=== PATIENT | female | born 1930 | race Caucasian/White ===

== ENCOUNTER 2019-09-30 11:13 | Inpatient (IN) | payer MEDICARE, OTHER ==
[~2019-09-30] VITALS: Ht 167.6 cm; Wt 86.0 kg
--- NOTE | 2019-09-30 12:37 | RAD ---
Left elbow x-rays 3 views HISTORY: Left elbow pain after a fall. FINDINGS: There is posterior dislocation of both the ulna and radius relative to the humerus at the elbow. Elevation of the fat pads due to a joint effusion. There is impaction of the ulna coronoid upon the intercondylar humerus. There is acute traumatic distracted an impacted fracture radial head with displaced osteochondral fragment. IMPRESSION: Comminuted impacted and displaced fracture of the radial head with a large displaced osteochondral fragment. There is posterior dislocation of both the radius and ulna. See above. Electronically signed by: Pratik Mccormick MD (09/30/2019 12:34 PM) [id number]
[2019-09-30 13:14] LABS: BASO % 1 % (0-3); EOS # 0.2 x10^3/uL (0.0-0.7); EOS % 2 % (0-3); HEMATOCRIT 41.5 % (36.0-47.0); HEMOGLOBIN 14.2 g/dL (12.0-15.5); LYMPH # 1.4 x10^3/uL (1.0-4.8); LYMPH % 18 % (24-48); MEAN CORPUSCULAR HEMOGLOBIN 30 pg (25-35); MEAN CORPUSCULAR HGB CONC 34 g/dL (31-37); MEAN CORPUSCULAR VOLUME 88 fL (79-100); MONO # 0.7 x10^3/uL (0.0-1.1); MONO % 9 % (0-9); NEUT # 5.4 x10^3/uL (1.8-7.7); NEUT % 70 % (31-73); PLATELET COUNT 191 x10^3/uL (140-400); RED BLOOD COUNT 4.69 x10^6/uL (3.50-5.40); RED CELL DISTRIBUTION WIDTH 14.3 % (11.5-14.5); WHITE BLOOD COUNT 7.7 x10^3/uL (4.0-11.0)
[2019-09-30] MEDS ORDERED: IV NORMAL SALINE 500ML BAG 500 ML IV ONE (13:15)
[2019-09-30] MEDS ORDERED: fentaNYL PF VIAL 100 MCG/2 ML VIAL IVP ONE (13:15)
[2019-09-30] MEDS ORDERED: PROPOFOL 10 MG/ML (20ML) VIAL. IV ONE (13:15)
[2019-09-30] MEDS ORDERED: ONDANSETRON PF 4 MG/2 ML VIAL. IVP ONE (13:15)
[2019-09-30 13:23] LABS: CALCIUM 8.9 mg/dL (8.5-10.1); CREATININE 1.2 mg/dL (0.6-1.0); GFR 42.5; POTASSIUM 3.9 mmol/L (3.5-5.1)
[2019-09-30 13:24] VITALS: BP 220/98
[2019-09-30 13:28] LABS: ALBUMIN 3.4 g/dL (3.4-5.0); TOTAL BILIRUBIN 0.5 mg/dL (0.2-1.0); TOTAL PROTEIN 6.9 g/dL (6.4-8.2)
--- NOTE | 2019-09-30 14:13 | RAD ---
ELBOW LEFT 2V Clinical Indication: Reason: post reduction / Spl. Instructions: / History: Comparison: Left elbow, 3 views, earlier same day. Findings: Posterior dislocation of the radius and ulna in relation to the distal humerus has been reduced. Comminuted fracture of the proximal radial head is redemonstrated. There is lipohemarthrosis. Limited evaluation of the coronoid process of the ulna due to bony overlap. Cast material overlies the elbow. IMPRESSION: Successful reduction of posterior dislocation of the radius and ulna. Electronically signed by: Telly Woo MD (09/30/2019 2:10 PM) [facility]
--- NOTE | 2019-09-30 14:31 | PHYS DOC ---
Past Medical History Past Medical History: Hypertension Additional Past Medical Histor: lymphedema in legs Past Surgical History: Other Additional Past Surgical Histo: D&C Smoking Status: Never Smoker Alcohol Use: Rarely Drug Use: None General Adult EDM: Chief Complaint: MECHANICAL FALL HPI: HPI: Patient is a 88 year old female who was brought here for evaluation due to left elbow pain after she failed at yazidi today. Patient was supposed to walk with a walker but today she chose to walk with a cane, she lost her balance and fell down, hit left elbow on ground, did not hit her head. No headache, no neck pain, no chest pain, no abdominal pain. No back pain, no lower extremities pain, no pelvic pain, no hip pain. She is complaining of left elbow pain. Review of Systems: Review of Systems: Constitutional: Denies fever or chills. [] Eyes: Denies change in visual acuity. [] HENT: Denies nasal congestion or sore throat. [] Respiratory: Denies cough or shortness of breath. [] Cardiovascular: Denies chest pain or edema. [] GI: Denies abdominal pain, nausea, vomiting, bloody stools or diarrhea. [] : Denies dysuria. [] Musculoskeletal: Denies back pain. Positive for left elbow pain. Integument: Denies rash. [] Neurologic: Denies headache, focal weakness or sensory changes. [] Endocrine: Denies polyuria or polydipsia. [] Lymphatic: Denies swollen glands. [] Psychiatric: Denies depression or anxiety. [] Heart Score: Risk Factors: Risk Factors: DM, Current or recent (<one month) smoker, HTN, HLP, family history of CAD, obesity. Risk Scores: Score 0 - 3: 2.5% MACE over next 6 weeks - Discharge Home Score 4 - 6: 20.3% MACE over next 6 weeks - Admit for Clinical Observation Score 7 - 10: 72.7% MACE over next 6 weeks - Early Invasive Strategies Current Medications: Current Medications Medications (Trade) Dose Ordered Sig/Caitlin Start Time Stop Time Status Last Admin Dose Admin Fentanyl Citrate (Fentanyl 2ml Vial) 50 mcg 1X ONCE 09/30/19 13:15 09/30/19 13:16 DC 09/30/19 13:28 50 MCG Ondansetron HCl (Zofran) 4 mg 1X ONCE 09/30/19 13:15 09/30/19 13:16 DC 09/30/19 13:28 4 MG Propofol (Diprivan) 200 mg 1X ONCE 09/30/19 13:15 09/30/19 13:16 DC 09/30/19 13:45 200 MG Sodium Chloride 500 ml @ 500 mls/hr 1X ONCE 09/30/19 13:15 09/30/19 14:14 DC 09/30/19 13:28 500 MLS/HR Allergies: Allergies: Allergies Coded Allergies Type Severity Reaction Last Updated Verified Iodinated Contrast Media Allergy Intermediate Hives 12/22/14 No Physical Exam: PE: Constitutional: Well developed, well nourished, no acute distress, non-toxic appearance. [] HENT: Normocephalic, atraumatic, bilateral external ears normal, oropharynx juan st, no oral exudates, nose normal. [] Eyes: PERRLA, EOMI, conjunctiva normal, no discharge. [] Neck: Normal range of motion, no tenderness, supple, no stridor. [] Cardiovascular:Heart rate regular rhythm, no murmur [] Lungs & Thorax: Bilateral breath sounds clear to auscultation [] Abdomen: Bowel sounds normal, soft, no tenderness, no masses, no pulsatile masses. [] Skin: Warm, dry, no erythema, no rash. [] Back: No tenderness, no CVA tenderness. [] Extremities: left elbow is swollen, deformed, tender to palpation, no open wound. Patient can move left wrist and fingers, good radial pulse, no focal neurovascular deficit. Neurologic: Alert and oriented X 3, normal motor function, normal sensory f unction, no focal deficits noted. [] Psychologic: Affect normal, judgement normal, mood normal. [] Current Patient Data: Labs: Laboratory Tests Test 09/30/19 13:05 White Blood Count 7.7 x10^3/uL (4.0-11.0) Red Blood Count 4.69 x10^6/uL (3.50-5.40) Hemoglobin 14.2 g/dL (12.0-15.5) Hematocrit 41.5 % (36.0-47.0) Mean Corpuscular Volume 88 fL (79-100) Mean Corpuscular Hemoglobin 30 pg (25-35) Mean Corpuscular Hemoglobin Concent 34 g/dL (31-37) Red Cell Distribution Width 14.3 % (11.5-14.5) Platelet Count 191 x10^3/uL (140-400) Neutrophils (%) (Auto) 70 % (31-73) Lymphocytes (%) (Auto) 18 % (24-48) L Monocytes (%) (Auto) 9 % (0-9) Eosinophils (%) (Auto) 2 % (0-3) Basophils (%) (Auto) 1 % (0-3) Neutrophils # (Auto) 5.4 x10^3/uL (1.8-7.7) Lymphocytes # (Auto) 1.4 x10^3/uL (1.0-4.8) Monocytes # (Auto) 0.7 x10^3/uL (0.0-1.1) Eosinophils # (Auto) 0.2 x10^3/uL (0.0-0.7) Basophils # (Auto) 0.0 x10^3/uL (0.0-0.2) Prothrombin Time 15.0 SEC (11.7-14.0) H Prothrombin Time INR 1.2 (0.8-1.1) H Activated Partial Thromboplast Time 31 SEC (24-38) Sodium Level 139 mmol/L (136-145) Potassium Level 3.9 mmol/L (3.5-5.1) Chloride Level 102 mmol/L (98-107) Carbon Dioxide Level 32 mmol/L (21-32) Anion Gap 5 (6-14) L Blood Urea Nitrogen 22 mg/dL (7-20) H Creatinine 1.2 mg/dL (0.6-1.0) H Estimated GFR (Cockcroft-Gault) 42.5 BUN/Creatinine Ratio 18 (6-20) Glucose Level 161 mg/dL (70-99) H Calcium Level 8.9 mg/dL (8.5-10.1) Total Bilirubin 0.5 mg/dL (0.2-1.0) Aspartate Amino Transferase (AST) 16 U/L (15-37) Alanine Aminotransferase (ALT) 15 U/L (14-59) Alkaline Phosphatase 74 U/L (46-116) Total Protein 6.9 g/dL (6.4-8.2) Albumin 3.4 g/dL (3.4-5.0) Albumin/Globulin Ratio 1.0 (1.0-1.7) Laboratory Tests 09/30/19 13:05 Laboratory Tests 09/30/19 13:05 Vital Signs: Vital Signs Date Time Temp Pulse Resp B/P (MAP) Pulse Ox O2 Delivery O2 Flow Rate FiO2 09/30/19 14:15 57 17 96 09/30/19 13:28 Room Air 09/30/19 13:24 97.2 220/98 2.0 97.5 2.0 97.5 2.0 2.0 2.0 EKG: EKG: [] Radiology/Procedures: Radiology/Procedures: [address] [id number] IMAGING REPORT Signed PATIENT: KELLEN FRANCO: [id number] : 1930 LOCATION: ER AGE: 88 SEX: F EXAM STATUS: PRE ER ORD. PHYSICIAN: DENIZ RAMOS DO REASON: left elbow pain after fall today PROCEDURE: ELBOW LEFT 3V Left elbow x-rays 3 views HISTORY: Left elbow pain after a fall. FINDINGS: There is posterior dislocation of both the ulna and radius relative to the humerus at the elbow. Elevation of the fat pads due to a joint effusion. There is impaction of the ulna coronoid upon the intercondylar humerus. There is acute traumatic distracted an impacted fracture radial head with displaced osteochondral fragment. IMPRESSION: Comminuted impacted and displaced fracture of the radial head with a large displaced osteochondral fragment. There is posterior dislocation of both the radius and ulna. See above. Electronically signed by: Víctor Mccormick MD (09/30/2019 12:34 PM) [id number] DICTATED and SIGNED BY: VÍCTOR MCCORMICK MD DATE: 09/30/[address] [id number] IMAGING REPORT Signed PATIENT: KELLEN FRANCO: [id number] : 1930 LOCATION: ER AGE: 88 SEX: F EXAM STATUS: REG ER ORD. PHYSICIAN: DENIZ RAMOS DO REASON: post reduction PROCEDURE: ELBOW LEFT 2V ELBOW LEFT 2V Clinical Indication: Reason: post reduction / Spl. Instructions: / History: Comparison: Left elbow, 3 views, earlier same day. Findings: Posterior dislocation of the radius and ulna in relation to the distal humerus has been reduced. Comminuted fracture of the proximal radial head is redemonstrated. There is lipohemarthrosis. Limited evaluation of the coronoid process of the ulna due to bony overlap. Cast material overlies the elbow. IMPRESSION: Successful reduction of posterior dislocation of the radius and ulna. Electronically signed by: Telly Woo MD (09/30/2019 2:10 PM) [facility] DICTATED and SIGNED BY: TELLY WOO MD DATE: 09/30/191409 [] Course & Med Decision Making: Course & Med Decision Making Pertinent Labs and Imaging studies reviewed. (See chart for details) SEDATION/ JOINT REDUCTION/SPLINTING PROCEDURE: Indication: Joint dislocation Consent: Consent was obtained. Procedure: The pre-reduction exam showed distal perfusion and neurologic function to be normal.. The patient was placed in the appropriate position. Patient was given 100 mg of PROPOFOL IV FOR SEDATION. Reduction of the LEFT ELBOW DISLOCATION was performed by TRACTION AND MANIPULATION AND PLACED IN POSTERIOR LONGER ARM SPLINT, ORTHOGLASS MATERIAL BY THIS PHYSICIAN. Post reduction films were obtained and revealed satisfactory reduction. A post- reduction exam revealed distal perfusion and neurologic function to be normal. The affected area was immobilized with POSTERIOR LONG ARM SPLINT , ORTHOGLASS MATERIAL. The patient tolerated the procedure well. Complications: none. Patient fell, broke and dislocated left elbow. Discussed with orthopedic [employer] unified communications engineer, Dr. Carter WHO recommended urgent reduction and admit patient to hospitalist service. He will see patient in am. Vivek Disclaimer: Vivek Disclaimer: This electronic medical record was generated, in whole or in part, using a voice recognition dictation system. Departure Departure Impression: Primary Impression: Fracture dislocation of left elbow joint Additional Impression: Closed dislocation of left elbow Disposition: ADMITTED INPATIENT Admitting Physician: CARA (Dr. Schreiber) Condition: IMPROVED Referrals: ADALGISA BROUSSARD MD (PCP) Justicifation of Admission Dx: Justifications for Admission: Justification of Admission Dx: Yes Fracture: Fracture Procedural Sedation Proc Sed Indication: Left elbow fracture and dislocation Consent: I have discussed with the patient and/or the patient circulation sales representative the indication, alternatives, and the possible risks and /or complications of the planned procedure and the anesthesia methods. The patient and/or patient circulation sales representative appear to understand and agree to proceed. Pre-Sedation Documentation and Exam: Patient was awake, alert, no neurovascular deficit, lung sound clear, heart rate regular. Airway Assessment: normal. Prior History of Anesthesia Complications: none. ASA Classification: 3 Sedation/ Anesthesia Plan: iv propofol. Medications Used: see nursing notes. Monitoring and Safety: The patient was placed on a athletic monitor and vital signs, pulse oximetry and level of consciousness were continuously evaluated throughout the procedure. The patient was closely monitored until recovery from the medications was complete and the patient had returned to baseline status. Respiratory therapy was on standby at all times during the procedure. (The following sections must be completed) Post-Sedation Vital Signs: see nurse notes, patient vital signs stable. Post-Sedation Exam: back to preprocedural status. Complications: none. Vital Signs Vital Signs Date Time Temp Pulse Resp B/P (MAP) Pulse Ox O2 Delivery O2 Flow Rate FiO2 10/01/19 08:17 71 181/76 10/01/19 07:00 97.9 16 93 Room Air 97.9 09/30/19 13:24 2.0 2.0 2.0 2.0 2.0 DENIZ RAMOS DO Sep 30, 2019 14:31
[2019-09-30] MEDS ORDERED: hydrALAZINE 20 MG/ML VIAL. IVP ONE (15:00)
[2019-09-30] MEDS ORDERED: CALC625T PO (15:22)
[2019-09-30] MEDS ORDERED: ATEN1TAB3 PO (15:22)
--- NOTE | 2019-09-30 15:42 | PDOC1 ---
History and Physical Date of Admission Date of Admission DATE: 09/30/19 TIME: 15:42 Identification/Chief Complaint Chief Complaint Patient is a 88 year old FEMALE ] who presents with A FALL AT [employer] TODAY, was talking to a friend and fell, x ray c/w fx elbow[] Past Medical History Past Medical History Past Medical History Past Medical History Past Medical History: Hypertension Additional Past Medical Histor: lymphedema in legs Past Surgical History: Other Additional Past Surgical Histo: D&C Smoking Status: Never Smoker Alcohol Use: Rarely Drug Use: None FHX OBESITY Musculoskeletal: Osteoarthritis Family History Family History: High Cholestrol Social History Smoke: No ALCOHOL: occassional Drugs: None Current Medications Current Medications Current Medications Fentanyl Citrate (Fentanyl 2ml Vial) 50 mcg 1X ONCE IVP Last administered on 09/30/19at 13:28; Start 09/30/19 at 13:15; Stop 09/30/19 at 13:16; Status DC Propofol (Diprivan) 200 mg 1X ONCE IV Last administered on 09/30/19at 13:45; Start 09/30/19 at 13:15; Stop 09/30/19 at 13:16; Status DC Sodium Chloride 500 ml @ 500 mls/hr 1X ONCE IV Last administered on 09/30/19at 13:28; Start 09/30/19 at 13:15; Stop 09/30/19 at 14:14; Status DC Ondansetron HCl (Zofran) 4 mg 1X ONCE IVP Last administered on 09/30/19at 13:28; Start 09/30/19 at 13:15; Stop 09/30/19 at 13:16; Status DC Hydralazine HCl (Apresoline Inj) 10 mg 1X ONCE IVP Last administered on 09/30/19at 15:00; Start 09/30/19 at 15:00; Stop 09/30/19 at 15:01; Status DC Active Scripts Active Reported Fibercon (Calcium Polycarbophil) 625 Mg Tablet 625 Mg PO DAILY Atenolol-Chlorthal 50-25 Tb (Atenolol/Chlorthalidone) 1 Each Tablet 1 Tab PO DAILY Allergies Allergies: Coded Allergies: Iodinated Contrast Media (Unverified Allergy, Intermediate, Hives, 12/22/14) ROS Review of System Constitutional: Denies fever or chills. [] Eyes: Denies change in visual acuity. [] HENT: Denies nasal congestion or sore throat. [] Respiratory: Denies cough or shortness of breath. [] Cardiovascular: Denies chest pain or edema. [] GI: Denies abdominal pain, nausea, vomiting, bloody stools or diarrhea. [] : Denies dysuria. [] Musculoskeletal: LEFT ELBOW joint pain. [] Integument: Denies rash. [] Neurologic: Denies headache, focal weakness or sensory changes. [] Endocrine: Denies polyuria or polydipsia. [] Lymphatic: Denies swollen glands. [] Psychiatric: Denies depression or anxiety. [] 14 PT ROS OTHERWISE NEG Respiratory: No: Cough, Hemoptysis, Orthopnea, Pleuritic Pain, Shortness of breath, SOB with excertion, Sputum Changes, Stridor, Tachypnea, Wheezing, Other Cardiovascular: No Chest Pain, No Palpitations, No Orthopnea, No Paroxysmal Noc. Dyspnea, No Edema, No Lt Headedness, No Other Gastrointestinal: No Nausea, No Vomiting, No Abdominal Pain, No Diarrhea, No Constipation, No Melena, No Hematochezia, No Other Musculoskeletal: Yes Gait Disturbance, Yes Joint Pain, Yes Joint Swelling Neurological: Yes Gait Disturbance Physical Exam Physical Exam Constitutional: Well developed, well nourished, MILD acute distress, non-toxic appearance. [] HENT: Normocephalic, atraumatic, bilateral external ears normal, oropharynx moist, no oral exudates, nose normal. [] Eyes: PERRLA, EOMI, conjunctiva normal, no discharge. [] Neck: Normal range of motion, no tenderness, supple, no stridor. [] Cardiovascular:Heart rate regular rhythm, no murmur [] Lungs & Thorax: Bilateral breath sounds clear to auscultation [] Abdomen: Bowel sounds normal, soft, no tenderness, no masses, no pulsatile masses. [] Skin: Warm, dry, no erythema, no rash. [] Back: No tenderness, no CVA tenderness. [] Extremities: LEFT ARM IN SLING no cyanosis, no clubbing, Neurologic: Alert and oriented X 3, normal motor function, normal sensory function, no focal deficits noted. [] Psychologic: Affect normal, judgment normal, mood normal. [] General: Alert, Oriented X3, Cooperative, mild distress HEENT: EOMI, Mucous membr. moist/pink Lungs: Clear to auscultation, Normal air movement Heart: RRR Breasts: Not examined Abdomen: Normal bowel sounds, Soft Rectal Exam: not examined PELVIC: Examination not indicated Extremities: No cyanosis Neuro: Normal speech, Cranial nerves 3-12 NL Psych/Mental Status: Mental status NL, Mood NL Vitals Vitals Vital Signs Date Time Temp Pulse Resp B/P (MAP) Pulse Ox O2 Delivery O2 Flow Rate FiO2 09/30/19 15:00 56 200/89 09/30/19 14:35 17 96 09/30/19 13:28 Room Air 09/30/19 13:24 97.2 2.0 97.5 2.0 97.5 2.0 2.0 2.0 Labs Labs Laboratory Tests Test 09/30/19 13:05 White Blood Count 7.7 x10^3/uL (4.0-11.0) Red Blood Count 4.69 x10^6/uL (3.50-5.40) Hemoglobin 14.2 g/dL (12.0-15.5) Hematocrit 41.5 % (36.0-47.0) Mean Corpuscular Volume 88 fL (79-100) Mean Corpuscular Hemoglobin 30 pg (25-35) Mean Corpuscular Hemoglobin Concent 34 g/dL (31-37) Red Cell Distribution Width 14.3 % (11.5-14.5) Platelet Count 191 x10^3/uL (140-400) Neutrophils (%) (Auto) 70 % (31-73) Lymphocytes (%) (Auto) 18 % (24-48) Monocytes (%) (Auto) 9 % (0-9) Eosinophils (%) (Auto) 2 % (0-3) Basophils (%) (Auto) 1 % (0-3) Neutrophils # (Auto) 5.4 x10^3/uL (1.8-7.7) Lymphocytes # (Auto) 1.4 x10^3/uL (1.0-4.8) Monocytes # (Auto) 0.7 x10^3/uL (0.0-1.1) Eosinophils # (Auto) 0.2 x10^3/uL (0.0-0.7) Basophils # (Auto) 0.0 x10^3/uL (0.0-0.2) Prothrombin Time 15.0 SEC (11.7-14.0) Prothromb Time International Ratio 1.2 (0.8-1.1) Activated Partial Thromboplast Time 31 SEC (24-38) Sodium Level 139 mmol/L (136-145) Potassium Level 3.9 mmol/L (3.5-5.1) Chloride Level 102 mmol/L (98-107) Carbon Dioxide Level 32 mmol/L (21-32) Anion Gap 5 (6-14) Blood Urea Nitrogen 22 mg/dL (7-20) Creatinine 1.2 mg/dL (0.6-1.0) Estimated GFR (Cockcroft-Gault) 42.5 BUN/Creatinine Ratio 18 (6-20) Glucose Level 161 mg/dL (70-99) Calcium Level 8.9 mg/dL (8.5-10.1) Total Bilirubin 0.5 mg/dL (0.2-1.0) Aspartate Amino Transf (AST/SGOT) 16 U/L (15-37) Alanine Aminotransferase (ALT/SGPT) 15 U/L (14-59) Alkaline Phosphatase 74 U/L (46-116) Total Protein 6.9 g/dL (6.4-8.2) Albumin 3.4 g/dL (3.4-5.0) Albumin/Globulin Ratio 1.0 (1.0-1.7) Laboratory Tests Test 09/30/19 13:05 White Blood Count 7.7 x10^3/uL (4.0-11.0) Red Blood Count 4.69 x10^6/uL (3.50-5.40) Hemoglobin 14.2 g/dL (12.0-15.5) Hematocrit 41.5 % (36.0-47.0) Mean Corpuscular Volume 88 fL (79-100) Mean Corpuscular Hemoglobin 30 pg (25-35) Mean Corpuscular Hemoglobin Concent 34 g/dL (31-37) Red Cell Distribution Width 14.3 % (11.5-14.5) Platelet Count 191 x10^3/uL (140-400) Neutrophils (%) (Auto) 70 % (31-73) Lymphocytes (%) (Auto) 18 % (24-48) Monocytes (%) (Auto) 9 % (0-9) Eosinophils (%) (Auto) 2 % (0-3) Basophils (%) (Auto) 1 % (0-3) Neutrophils # (Auto) 5.4 x10^3/uL (1.8-7.7) Lymphocytes # (Auto) 1.4 x10^3/uL (1.0-4.8) Monocytes # (Auto) 0.7 x10^3/uL (0.0-1.1) Eosinophils # (Auto) 0.2 x10^3/uL (0.0-0.7) Basophils # (Auto) 0.0 x10^3/uL (0.0-0.2) Prothrombin Time 15.0 SEC (11.7-14.0) Prothromb Time International Ratio 1.2 (0.8-1.1) Activated Partial Thromboplast Time 31 SEC (24-38) Sodium Level 139 mmol/L (136-145) Potassium Level 3.9 mmol/L (3.5-5.1) Chloride Level 102 mmol/L (98-107) Carbon Dioxide Level 32 mmol/L (21-32) Anion Gap 5 (6-14) Blood Urea Nitrogen 22 mg/dL (7-20) Creatinine 1.2 mg/dL (0.6-1.0) Estimated GFR (Cockcroft-Gault) 42.5 BUN/Creatinine Ratio 18 (6-20) Glucose Level 161 mg/dL (70-99) Calcium Level 8.9 mg/dL (8.5-10.1) Total Bilirubin 0.5 mg/dL (0.2-1.0) Aspartate Amino Transf (AST/SGOT) 16 U/L (15-37) Alanine Aminotransferase (ALT/SGPT) 15 U/L (14-59) Alkaline Phosphatase 74 U/L (46-116) Total Protein 6.9 g/dL (6.4-8.2) Albumin 3.4 g/dL (3.4-5.0) Albumin/Globulin Ratio 1.0 (1.0-1.7) Images Images Left elbow x-rays 3 views HISTORY: Left elbow pain after a fall. FINDINGS: There is posterior dislocation of both the ulna and radius relative to the humerus at the elbow. Elevation of the fat pads due to a joint effusion. There is impaction of the ulna coronoid upon the intercondylar humerus. There is acute traumatic distracted an impacted fracture radial head with displaced osteochondral fragment. IMPRESSION: Comminuted impacted and displaced fracture of the radial head with a large displaced osteochondral fragment. There is posterior dislocation of both the radius and ulna. See above. Electronically signed by: Pratik Mccormick MD (09/30/2019 12:34 PM) [id number] DICTATED and SIGNED BY: PRATIK MCCORMICK MD DATE: 09/30/19 1234 VTE Prophylaxis Ordered VTE Prophylaxis Devices: Yes VTE Pharmacological Prophylaxi: Contraindicated Assessment/Plan Assessment/Plan MPRESSION: 1. Mechanical fall 2. Comminuted impacted and displaced fracture of the radial head with a large displaced osteochondral fragment. There is posterior dislocation of both the radius and ulna 3, unsteady gait 4. intractable pain from fracture plan admit ORTHO CONSULT IV PAIN CONTROL BEDREST D/W ER DR Lugotion of Admission Dx: Justifications for Admission: Justification of Admission Dx: Yes Fracture: Fracture Comments: FALL, GAIT INSTABILITY, INTRACTABLE PAIN BART DOMINIQUE MD Sep 30, 2019 15:42
[2019-09-30] MEDS ORDERED: HYDROmorphone 2 MG/ML VIAL IVP PRN (16:00)
[2019-09-30 19:00] VITALS: BP 124/55
[2019-09-30] MEDS: CALCIUM POLYCARBOPHIL 625 MG TABLET PO SCH (20:11)
[2019-09-30 23:00] VITALS: BP 125/43
[2019-10-01 03:02] VITALS: BP 147/67
[2019-10-01 07:00] VITALS: BP 181/76
--- NOTE | 2019-10-01 07:15 | PDOC2 ---
CONSULT Date of Consult Date of Consult DATE: 10/01/19 TIME: 07:11 Reason for Consult Reason for Consult: Left elbow pain Referring Physician Referring Physician: Abdoul Identification/Chief Complaint Chief Complaint Left elbow pain Source Source: Patient History of Present Illness Reason for Visit: Patient is a pleasant 88-year-old [id number] female who lives alone. She tripped and lost her footing at [employer] yesterday, landing onto an outstretched left upper extremity noting immediate pain and deformity. Because of this she was brought to the emergency department where she underwent x-rays and a successful reduction. She was placed into a splint and admitted for care regarding her left elbow fracture dislocation. She tells me that her pain is certainly much better than it was immediately after her injury. She denies any numbness or tingling in her fingers, she has noticed that her fingers are little bit swollen this morning. She denies hitting anything else or any other complaints of pain. Past Medical History Musculoskeletal: Osteoarthritis Family History Family History: High Cholestrol Social History No ALCOHOL: occassional Drugs: None Lives: Alone Current Problem List Problem List Problems Medical Problems: (1) Closed dislocation of left elbow Status: Acute (2) Fracture dislocation of left elbow joint Status: Acute Current Medications Current Medications Current Medications Fentanyl Citrate (Fentanyl 2ml Vial) 50 mcg 1X ONCE IVP Last administered on 09/30/19at 13:28; Start 09/30/19 at 13:15; Stop 09/30/19 at 13:16; Status DC Propofol (Diprivan) 200 mg 1X ONCE IV Last administered on 09/30/19at 13:45; Start 09/30/19 at 13:15; Stop 09/30/19 at 13:16; Status DC Sodium Chloride 500 ml @ 500 mls/hr 1X ONCE IV Last administered on 09/30/19at 13:28; Start 09/30/19 at 13:15; Stop 09/30/19 at 14:14; Status DC Ondansetron HCl (Zofran) 4 mg 1X ONCE IVP Last administered on 09/30/19at 13:28; Start 09/30/19 at 13:15; Stop 09/30/19 at 13:16; Status DC Hydralazine HCl (Apresoline Inj) 10 mg 1X ONCE IVP Last administered on 09/30/19at 15:00; Start 09/30/19 at 15:00; Stop 09/30/19 at 15:01; Status DC Calcium Polycarbophil (Fibercon) 625 mg DAILY PO ; Start 10/01/19 at 09:00; Stop 09/30/19 at 19:18; Status DC Atenolol (Tenormin) 50 mg DAILY PO ; Start 10/01/19 at 09:00 Hydromorphone HCl (Dilaudid) 0.4 mg PRN Q4HRS PRN IVP MODERATE TO SEVERE PAIN; Start 09/30/19 at 16:00 Chlorthalidone (Thalitone) 25 mg DAILY PO ; Start 10/01/19 at 09:00 Calcium Polycarbophil (Fibercon) 625 mg HS PO Last administered on 09/30/19at 20:11; Start 09/30/19 at 21:00 Active Scripts Active Reported Fibercon (Calcium Polycarbophil) 625 Mg Tablet 625 Mg PO DAILY Atenolol-Chlorthal 50-25 Tb (Atenolol/Chlorthalidone) 1 Each Tablet 1 Tab PO DAILY Allergies Allergies: Coded Allergies: Iodinated Contrast Media (Unverified Allergy, Intermediate, Hives, 12/22/14) ROS General: No: Chills, Night Sweats, Fatigue, Malaise, Appetite, Other PSYCHOLOGICAL ROS: No: Anxiety, Behavioral Disorder, Concentration difficultie, Decreased libido, Depression, Disorientation, Hallucinations, Hostility, Irritablity, Memory difficulties, Mood Swings, Obsessive thoughts, Physical abuse, Sexual abuse, Sleep disturbances, Suicidal ideation, Other Eyes: No Blurry vision, No Decreased vision, No Double vision, No Dry eyes, No Excessive tearing, No Eye Pain, No Itchy Eyes, No Loss of vision, No Photophobia, No Scotomata, No Uses contacts, No Uses glasses, No Other HEENT: No: Heacaches, Visual Changes, Hearing change, Nasal congestion, Nasal discharge, Oral lesions, Sinus pain, Sore Throat, Epistaxis, Sneezing, Snoring, Tinnitus, Vertigo, Vocal changes, Other ALLERGY AND IMMUNOLOGY: No: Hives, Insect Bite Sensitivity, Itchy/Watery Eyes, Nasal Congestion, Post Nasal Drip, Seasonal Allergies, Other Hematological and Lymphatic: No: Bleeding Problems, Blood Clots, Blood Transfusions, Brusing, Night Sweats, Pallor, Swollen Lymph Nodes, Other ENDOCRINE: No: Breast Changes, Galactorrhea, Hair Pattern Changes, Hot Flashes, Malaise/lethargy, Mood Swings, Palpitations, Polydipsia/polyuria, Skin Changes, Temperature Intolerance, Unexpected Weight Changes, Other Respiratory: No: Cough, Hemoptysis, Orthopnea, Pleuritic Pain, Shortness of breath, SOB with excertion, Sputum Changes, Stridor, Tachypnea, Wheezing, Other Cardiovascular: No Chest Pain, No Palpitations, No Orthopnea, No Paroxysmal Noc. Dyspnea, No Edema, No Lt Headedness, No Other Gastrointestinal: No Nausea, No Vomiting, No Abdominal Pain, No Diarrhea, No Constipation, No Melena, No Hematochezia, No Other Genitourinary: No Dysuria, No Frequency, No Incontinence, No Hematuria, No Retention, No Discharge, No Urgency, No Pain, No Flank Pain, No Other, No , No , No , No , No , No , No Musculoskeletal: Yes Joint Pain, Yes Joint Stiffness Neurological: No Behavorial Changes, No Bowel/Bladder ControlChng, No Confusion, No Dizziness, No Gait Disturbance, No Headaches, No Impaired Coord/balance, No Memory Loss, No Numbness/Tingling, No Seizures, No Speech Problems, No Tremors, No Visual Changes, No Weakness, No Other Skin: No Dry Skin, No Eczema, No Hair Changes, No Lumps, No Mole Changes, No Mottling, No Nail Changes, No Pruritus, No Rash, No Skin Lesion Changes, No Other, No Acne Physical Exam General: Alert, Oriented X3 HEENT: Atraumatic, EOMI Lungs: Other (On examination, respirations are unlabored with symmetric chest rise) Heart: Regular rate Abdomen: Soft, No tenderness Extremities: No edema (With the exception of a mild amount of edema at her exposed digits on her left upper extremity), Normal pulses Neuro: Normal speech, Strength at 5/5 X4 ext, Sensation intact Psych/Mental Status: Mental status NL, Mood NL MUSCULOSKELETAL: Other (Left upper extremity is in a posterior splint, sling in place. Normal motor and sensation present median, radial, ulnar nerves.) Vitals VITALS Vital Signs Date Time Temp Pulse Resp B/P (MAP) Pulse Ox O2 Delivery O2 Flow Rate FiO2 10/01/19 03:02 98.2 77 20 147/67 (93) 91 Room Air 98.2 09/30/19 13:24 2.0 2.0 2.0 2.0 2.0 Labs Labs Laboratory Tests Test 09/30/19 13:05 09/30/19 13:40 White Blood Count 7.7 x10^3/uL (4.0-11.0) Red Blood Count 4.69 x10^6/uL (3.50-5.40) Hemoglobin 14.2 g/dL (12.0-15.5) Hematocrit 41.5 % (36.0-47.0) Mean Corpuscular Volume 88 fL (79-100) Mean Corpuscular Hemoglobin 30 pg (25-35) Mean Corpuscular Hemoglobin Concent 34 g/dL (31-37) Red Cell Distribution Width 14.3 % (11.5-14.5) Platelet Count 191 x10^3/uL (140-400) Neutrophils (%) (Auto) 70 % (31-73) Lymphocytes (%) (Auto) 18 % (24-48) Monocytes (%) (Auto) 9 % (0-9) Eosinophils (%) (Auto) 2 % (0-3) Basophils (%) (Auto) 1 % (0-3) Neutrophils # (Auto) 5.4 x10^3/uL (1.8-7.7) Lymphocytes # (Auto) 1.4 x10^3/uL (1.0-4.8) Monocytes # (Auto) 0.7 x10^3/uL (0.0-1.1) Eosinophils # (Auto) 0.2 x10^3/uL (0.0-0.7) Basophils # (Auto) 0.0 x10^3/uL (0.0-0.2) Prothrombin Time 15.0 SEC (11.7-14.0) Prothromb Time International Ratio 1.2 (0.8-1.1) Activated Partial Thromboplast Time 31 SEC (24-38) Sodium Level 139 mmol/L (136-145) Potassium Level 3.9 mmol/L (3.5-5.1) Chloride Level 102 mmol/L (98-107) Carbon Dioxide Level 32 mmol/L (21-32) Anion Gap 5 (6-14) Blood Urea Nitrogen 22 mg/dL (7-20) Creatinine 1.2 mg/dL (0.6-1.0) Estimated GFR (Cockcroft-Gault) 42.5 BUN/Creatinine Ratio 18 (6-20) Glucose Level 161 mg/dL (70-99) Calcium Level 8.9 mg/dL (8.5-10.1) Total Bilirubin 0.5 mg/dL (0.2-1.0) Aspartate Amino Transf (AST/SGOT) 16 U/L (15-37) Alanine Aminotransferase (ALT/SGPT) 15 U/L (14-59) Alkaline Phosphatase 74 U/L (46-116) Total Protein 6.9 g/dL (6.4-8.2) Albumin 3.4 g/dL (3.4-5.0) Albumin/Globulin Ratio 1.0 (1.0-1.7) Coronavirus (COVID-19)(PCR) Negative (NEGATIVE) Laboratory Tests Test 09/30/19 13:05 09/30/19 13:40 White Blood Count 7.7 x10^3/uL (4.0-11.0) Red Blood Count 4.69 x10^6/uL (3.50-5.40) Hemoglobin 14.2 g/dL (12.0-15.5) Hematocrit 41.5 % (36.0-47.0) Mean Corpuscular Volume 88 fL (79-100) Mean Corpuscular Hemoglobin 30 pg (25-35) Mean Corpuscular Hemoglobin Concent 34 g/dL (31-37) Red Cell Distribution Width 14.3 % (11.5-14.5) Platelet Count 191 x10^3/uL (140-400) Neutrophils (%) (Auto) 70 % (31-73) Lymphocytes (%) (Auto) 18 % (24-48) Monocytes (%) (Auto) 9 % (0-9) Eosinophils (%) (Auto) 2 % (0-3) Basophils (%) (Auto) 1 % (0-3) Neutrophils # (Auto) 5.4 x10^3/uL (1.8-7.7) Lymphocytes # (Auto) 1.4 x10^3/uL (1.0-4.8) Monocytes # (Auto) 0.7 x10^3/uL (0.0-1.1) Eosinophils # (Auto) 0.2 x10^3/uL (0.0-0.7) Basophils # (Auto) 0.0 x10^3/uL (0.0-0.2) Prothrombin Time 15.0 SEC (11.7-14.0) Prothromb Time International Ratio 1.2 (0.8-1.1) Activated Partial Thromboplast Time 31 SEC (24-38) Sodium Level 139 mmol/L (136-145) Potassium Level 3.9 mmol/L (3.5-5.1) Chloride Level 102 mmol/L (98-107) Carbon Dioxide Level 32 mmol/L (21-32) Anion Gap 5 (6-14) Blood Urea Nitrogen 22 mg/dL (7-20) Creatinine 1.2 mg/dL (0.6-1.0) Estimated GFR (Cockcroft-Gault) 42.5 BUN/Creatinine Ratio 18 (6-20) Glucose Level 161 mg/dL (70-99) Calcium Level 8.9 mg/dL (8.5-10.1) Total Bilirubin 0.5 mg/dL (0.2-1.0) Aspartate Amino Transf (AST/SGOT) 16 U/L (15-37) Alanine Aminotransferase (ALT/SGPT) 15 U/L (14-59) Alkaline Phosphatase 74 U/L (46-116) Total Protein 6.9 g/dL (6.4-8.2) Albumin 3.4 g/dL (3.4-5.0) Albumin/Globulin Ratio 1.0 (1.0-1.7) Coronavirus (COVID-19)(PCR) Negative (NEGATIVE) Images Images Pre-and post reduction x-rays were interpreted by myself. Report was reviewed. Posterior lateral elbow dislocation with comminuted radial head fracture. Assessment/Plan Assessment/Plan Given her age, the comminution at the radial head and her elbow dislocation, I discussed proceeding with radial head replacement and ligament repair at her elbow. We discussed the risks, benefits, and alternatives including bleeding, infection, hardware problems, possible need for additional surgery down the road, splinting postoperatively and expected rehab placement, among general medical problems as well. She would like to proceed. GERMANIA GOVEA II, MD Oct 01, 2019 07:15
[2019-10-01] MEDS: ATENOLOL 50 MG TABLET. PO SCH (08:17)
[2019-10-01] MEDS: CHLORTHALIDONE 25 MG TABLET. PO SCH (08:17)
[2019-10-01] MEDS ORDERED: CALCIUM POLYCARBOPHIL 625 MG TABLET PO SCH (09:00)
[2019-10-01 11:00] VITALS: BP 159/73
--- NOTE | 2019-10-01 12:36 | PDOC ---
PROGRESS NOTES Chief Complaint Chief Complaint acute left arm pain, with acute radial head and her elbow dislocation, Mechanical fall unsteady gait obese, BMI 30 htn History of Present Illness History of Present Illness weakness, debility PT and OT, herman needs skilled, to surg in tomorrow Vitals Vitals Vital Signs Date Time Temp Pulse Resp B/P (MAP) Pulse Ox O2 Delivery O2 Flow Rate FiO2 10/01/19 11:00 98.4 66 18 159/73 (101) 92 Room Air 98.4 09/30/19 13:24 2.0 2.0 2.0 2.0 2.0 Physical Exam General: Alert, Oriented X3 Heart: Regular rate Abdomen: Soft, No tenderness Extremities: No edema (With the exception of a mild amount of edema at her exposed digits on her left upper extremity), Normal pulses Labs LABS Laboratory Tests Test 09/30/19 13:05 09/30/19 13:40 White Blood Count 7.7 x10^3/uL (4.0-11.0) Red Blood Count 4.69 x10^6/uL (3.50-5.40) Hemoglobin 14.2 g/dL (12.0-15.5) Hematocrit 41.5 % (36.0-47.0) Mean Corpuscular Volume 88 fL (79-100) Mean Corpuscular Hemoglobin 30 pg (25-35) Mean Corpuscular Hemoglobin Concent 34 g/dL (31-37) Red Cell Distribution Width 14.3 % (11.5-14.5) Platelet Count 191 x10^3/uL (140-400) Neutrophils (%) (Auto) 70 % (31-73) Lymphocytes (%) (Auto) 18 % (24-48) Monocytes (%) (Auto) 9 % (0-9) Eosinophils (%) (Auto) 2 % (0-3) Basophils (%) (Auto) 1 % (0-3) Neutrophils # (Auto) 5.4 x10^3/uL (1.8-7.7) Lymphocytes # (Auto) 1.4 x10^3/uL (1.0-4.8) Monocytes # (Auto) 0.7 x10^3/uL (0.0-1.1) Eosinophils # (Auto) 0.2 x10^3/uL (0.0-0.7) Basophils # (Auto) 0.0 x10^3/uL (0.0-0.2) Prothrombin Time 15.0 SEC (11.7-14.0) Prothromb Time International Ratio 1.2 (0.8-1.1) Activated Partial Thromboplast Time 31 SEC (24-38) Sodium Level 139 mmol/L (136-145) Potassium Level 3.9 mmol/L (3.5-5.1) Chloride Level 102 mmol/L (98-107) Carbon Dioxide Level 32 mmol/L (21-32) Anion Gap 5 (6-14) Blood Urea Nitrogen 22 mg/dL (7-20) Creatinine 1.2 mg/dL (0.6-1.0) Estimated GFR (Cockcroft-Gault) 42.5 BUN/Creatinine Ratio 18 (6-20) Glucose Level 161 mg/dL (70-99) Calcium Level 8.9 mg/dL (8.5-10.1) Total Bilirubin 0.5 mg/dL (0.2-1.0) Aspartate Amino Transf (AST/SGOT) 16 U/L (15-37) Alanine Aminotransferase (ALT/SGPT) 15 U/L (14-59) Alkaline Phosphatase 74 U/L (46-116) Total Protein 6.9 g/dL (6.4-8.2) Albumin 3.4 g/dL (3.4-5.0) Albumin/Globulin Ratio 1.0 (1.0-1.7) Coronavirus (COVID-19)(PCR) Negative (NEGATIVE) Assessment and Plan Assessmemt and Plan Problems Medical Problems: (1) Closed dislocation of left elbow Status: Acute (2) Fracture dislocation of left elbow joint Status: Acute Comment Review of Relevant I have reviewed the following items lisy (where applicable) has been applied. Labs Laboratory Tests Test 09/30/19 13:05 09/30/19 13:40 White Blood Count 7.7 x10^3/uL (4.0-11.0) Red Blood Count 4.69 x10^6/uL (3.50-5.40) Hemoglobin 14.2 g/dL (12.0-15.5) Hematocrit 41.5 % (36.0-47.0) Mean Corpuscular Volume 88 fL (79-100) Mean Corpuscular Hemoglobin 30 pg (25-35) Mean Corpuscular Hemoglobin Concent 34 g/dL (31-37) Red Cell Distribution Width 14.3 % (11.5-14.5) Platelet Count 191 x10^3/uL (140-400) Neutrophils (%) (Auto) 70 % (31-73) Lymphocytes (%) (Auto) 18 % (24-48) Monocytes (%) (Auto) 9 % (0-9) Eosinophils (%) (Auto) 2 % (0-3) Basophils (%) (Auto) 1 % (0-3) Neutrophils # (Auto) 5.4 x10^3/uL (1.8-7.7) Lymphocytes # (Auto) 1.4 x10^3/uL (1.0-4.8) Monocytes # (Auto) 0.7 x10^3/uL (0.0-1.1) Eosinophils # (Auto) 0.2 x10^3/uL (0.0-0.7) Basophils # (Auto) 0.0 x10^3/uL (0.0-0.2) Prothrombin Time 15.0 SEC (11.7-14.0) Prothromb Time International Ratio 1.2 (0.8-1.1) Activated Partial Thromboplast Time 31 SEC (24-38) Sodium Level 139 mmol/L (136-145) Potassium Level 3.9 mmol/L (3.5-5.1) Chloride Level 102 mmol/L (98-107) Carbon Dioxide Level 32 mmol/L (21-32) Anion Gap 5 (6-14) Blood Urea Nitrogen 22 mg/dL (7-20) Creatinine 1.2 mg/dL (0.6-1.0) Estimated GFR (Cockcroft-Gault) 42.5 BUN/Creatinine Ratio 18 (6-20) Glucose Level 161 mg/dL (70-99) Calcium Level 8.9 mg/dL (8.5-10.1) Total Bilirubin 0.5 mg/dL (0.2-1.0) Aspartate Amino Transf (AST/SGOT) 16 U/L (15-37) Alanine Aminotransferase (ALT/SGPT) 15 U/L (14-59) Alkaline Phosphatase 74 U/L (46-116) Total Protein 6.9 g/dL (6.4-8.2) Albumin 3.4 g/dL (3.4-5.0) Albumin/Globulin Ratio 1.0 (1.0-1.7) Coronavirus (COVID-19)(PCR) Negative (NEGATIVE) Laboratory Tests Test 09/30/19 13:05 09/30/19 13:40 White Blood Count 7.7 x10^3/uL (4.0-11.0) Red Blood Count 4.69 x10^6/uL (3.50-5.40) Hemoglobin 14.2 g/dL (12.0-15.5) Hematocrit 41.5 % (36.0-47.0) Mean Corpuscular Volume 88 fL (79-100) Mean Corpuscular Hemoglobin 30 pg (25-35) Mean Corpuscular Hemoglobin Concent 34 g/dL (31-37) Red Cell Distribution Width 14.3 % (11.5-14.5) Platelet Count 191 x10^3/uL (140-400) Neutrophils (%) (Auto) 70 % (31-73) Lymphocytes (%) (Auto) 18 % (24-48) Monocytes (%) (Auto) 9 % (0-9) Eosinophils (%) (Auto) 2 % (0-3) Basophils (%) (Auto) 1 % (0-3) Neutrophils # (Auto) 5.4 x10^3/uL (1.8-7.7) Lymphocytes # (Auto) 1.4 x10^3/uL (1.0-4.8) Monocytes # (Auto) 0.7 x10^3/uL (0.0-1.1) Eosinophils # (Auto) 0.2 x10^3/uL (0.0-0.7) Basophils # (Auto) 0.0 x10^3/uL (0.0-0.2) Prothrombin Time 15.0 SEC (11.7-14.0) Prothromb Time International Ratio 1.2 (0.8-1.1) Activated Partial Thromboplast Time 31 SEC (24-38) Sodium Level 139 mmol/L (136-145) Potassium Level 3.9 mmol/L (3.5-5.1) Chloride Level 102 mmol/L (98-107) Carbon Dioxide Level 32 mmol/L (21-32) Anion Gap 5 (6-14) Blood Urea Nitrogen 22 mg/dL (7-20) Creatinine 1.2 mg/dL (0.6-1.0) Estimated GFR (Cockcroft-Gault) 42.5 BUN/Creatinine Ratio 18 (6-20) Glucose Level 161 mg/dL (70-99) Calcium Level 8.9 mg/dL (8.5-10.1) Total Bilirubin 0.5 mg/dL (0.2-1.0) Aspartate Amino Transf (AST/SGOT) 16 U/L (15-37) Alanine Aminotransferase (ALT/SGPT) 15 U/L (14-59) Alkaline Phosphatase 74 U/L (46-116) Total Protein 6.9 g/dL (6.4-8.2) Albumin 3.4 g/dL (3.4-5.0) Albumin/Globulin Ratio 1.0 (1.0-1.7) Coronavirus (COVID-19)(PCR) Negative (NEGATIVE) Medications Current Medications Fentanyl Citrate (Fentanyl 2ml Vial) 50 mcg 1X ONCE IVP Last administered on 09/30/19at 13:28; Start 09/30/19 at 13:15; Stop 09/30/19 at 13:16; Status DC Propofol (Diprivan) 200 mg 1X ONCE IV Last administered on 09/30/19at 13:45; Start 09/30/19 at 13:15; Stop 09/30/19 at 13:16; Status DC Sodium Chloride 500 ml @ 500 mls/hr 1X ONCE IV Last administered on 09/30/19at 13:28; Start 09/30/19 at 13:15; Stop 09/30/19 at 14:14; Status DC Ondansetron HCl (Zofran) 4 mg 1X ONCE IVP Last administered on 09/30/19at 13:28; Start 09/30/19 at 13:15; Stop 09/30/19 at 13:16; Status DC Hydralazine HCl (Apresoline Inj) 10 mg 1X ONCE IVP Last administered on 09/30/19at 15:00; Start 09/30/19 at 15:00; Stop 09/30/19 at 15:01; Status DC Calcium Polycarbophil (Fibercon) 625 mg DAILY PO ; Start 10/01/19 at 09:00; Stop 09/30/19 at 19:18; Status DC Atenolol (Tenormin) 50 mg DAILY PO Last administered on 10/01/19at 08:17; Start 10/01/19 at 09:00 Hydromorphone HCl (Dilaudid) 0.4 mg PRN Q4HRS PRN IVP MODERATE TO SEVERE PAIN; Start 09/30/19 at 16:00 Chlorthalidone (Thalitone) 25 mg DAILY PO Last administered on 10/01/19at 08:17; Start 10/01/19 at 09:00 Calcium Polycarbophil (Fibercon) 625 mg HS PO Last administered on 09/30/19at 20:11; Start 09/30/19 at 21:00 Active Scripts Active Reported Fibercon (Calcium Polycarbophil) 625 Mg Tablet 625 Mg PO DAILY Atenolol-Chlorthal 50-25 Tb (Atenolol/Chlorthalidone) 1 Each Tablet 1 Tab PO DAILY Vitals/I & O Vital Sign - Last 24 Hours 09/30/19 09/30/19 09/30/19 09/30/19 13:17 13:24 13:28 13:43 Temp 97.2 97.5 97.5 Pulse 58 54 57 52 56 Resp 16 18 16 17 16 18 B/P (MAP) 220/98 Pulse Ox 91 97 96 O2 Delivery Room Air O2 Flow Rate 2.0 2.0 2.0 2.0 2.0 09/30/19 09/30/19 09/30/19 09/30/19 14:15 14:35 15:00 15:55 Pulse 57 58 56 Resp 17 17 B/P (MAP) 200/89 Pulse Ox 96 96 O2 Delivery Room Air 09/30/19 09/30/19 09/30/19 10/01/19 19:00 20:00 23:00 03:02 Temp 98.3 98.0 98.2 98.3 98.0 98.2 Pulse 67 73 77 Resp 20 20 20 B/P (MAP) 124/55 (78) 125/43 (70) 147/67 (93) Pulse Ox 92 91 91 O2 Delivery Room Air Room Air Room Air Room Air 10/01/19 10/01/19 10/01/19 10/01/19 07:00 08:00 08:17 11:00 Temp 97.9 98.4 97.9 98.4 Pulse 71 71 66 Resp 16 18 B/P (MAP) 181/76 (111) 181/76 159/73 (101) Pulse Ox 93 92 O2 Delivery Room Air Room Air Room Air Intake and Output 09/30/19 09/30/19 10/01/19 15:00 23:00 07:00 Intake Total 500 ml 40 ml Output Total 0 ml Balance 500 ml 40 ml 0 ml CATHI OZUNA MD Oct 01, 2019 12:36
[2019-10-01 15:00] VITALS: BP 164/77
[2019-10-01 19:00] VITALS: BP 169/74
[2019-10-01] MEDS: CALCIUM POLYCARBOPHIL 625 MG TABLET PO SCH (20:49)
[2019-10-01 23:00] VITALS: BP 151/82
[2019-10-02] VITALS (11 sets, daily range): BP systolic 129–166; BP diastolic 55–75
[2019-10-02] MEDS ORDERED: fentaNYL PF VIAL 100 MCG/2 ML VIAL IV PRN ×2 (07:00)
[2019-10-02] MEDS ORDERED: LIDOCAINE 1% PF 2 ML VIAL. ID PRN (07:00)
[2019-10-02] MEDS ORDERED: MORPHINE SULFATE 2 MG/ML VIAL. IV PRN (07:00)
[2019-10-02] MEDS ORDERED: HYDROmorphone 2 MG/ML VIAL IV PRN (07:00)
[2019-10-02] MEDS ORDERED: IV RINGERS,LACTATED 1000ML 1,000 ML IV SCH (07:00)
[2019-10-02] MEDS ORDERED: ONDANSETRON PF 4 MG/2 ML VIAL. IV PRN (07:00)
[2019-10-02] MEDS ORDERED: PROCHLORPERAZINE 10 MG/2 ML VIAL. IV PRN (07:00)
[2019-10-02] MEDS: CHLORTHALIDONE 25 MG TABLET. PO SCH (08:07)
[2019-10-02] MEDS: ATENOLOL 50 MG TABLET. PO SCH (08:08)
[2019-10-02] MEDS ORDERED: PROPOFOL 10 MG/ML (20ML) VIAL. IV ONE (08:35)
[2019-10-02] MEDS ORDERED: fentaNYL PF VIAL 100 MCG/2 ML VIAL ONE (08:35)
[2019-10-02] MEDS ORDERED: LIDOCAINE 2% PF 5 ML VIAL. ONE (08:35)
--- NOTE | 2019-10-02 09:12 | PDOC ---
ORTHO PROGRESS NOTES Subjective Pain tolerable. No new concerns Vitals Vital Signs Date Time Temp Pulse Resp B/P (MAP) Pulse Ox O2 Delivery O2 Flow Rate FiO2 10/02/19 08:08 71 166/71 10/02/19 07:00 97.7 18 91 Room Air 97.7 10/02/19 03:00 2.0 Labs Laboratory Tests Test 09/30/19 13:05 09/30/19 13:40 White Blood Count 7.7 x10^3/uL (4.0-11.0) Red Blood Count 4.69 x10^6/uL (3.50-5.40) Hemoglobin 14.2 g/dL (12.0-15.5) Hematocrit 41.5 % (36.0-47.0) Mean Corpuscular Volume 88 fL (79-100) Mean Corpuscular Hemoglobin 30 pg (25-35) Mean Corpuscular Hemoglobin Concent 34 g/dL (31-37) Red Cell Distribution Width 14.3 % (11.5-14.5) Platelet Count 191 x10^3/uL (140-400) Neutrophils (%) (Auto) 70 % (31-73) Lymphocytes (%) (Auto) 18 % (24-48) Monocytes (%) (Auto) 9 % (0-9) Eosinophils (%) (Auto) 2 % (0-3) Basophils (%) (Auto) 1 % (0-3) Neutrophils # (Auto) 5.4 x10^3/uL (1.8-7.7) Lymphocytes # (Auto) 1.4 x10^3/uL (1.0-4.8) Monocytes # (Auto) 0.7 x10^3/uL (0.0-1.1) Eosinophils # (Auto) 0.2 x10^3/uL (0.0-0.7) Basophils # (Auto) 0.0 x10^3/uL (0.0-0.2) Prothrombin Time 15.0 SEC (11.7-14.0) Prothromb Time International Ratio 1.2 (0.8-1.1) Activated Partial Thromboplast Time 31 SEC (24-38) Sodium Level 139 mmol/L (136-145) Potassium Level 3.9 mmol/L (3.5-5.1) Chloride Level 102 mmol/L (98-107) Carbon Dioxide Level 32 mmol/L (21-32) Anion Gap 5 (6-14) Blood Urea Nitrogen 22 mg/dL (7-20) Creatinine 1.2 mg/dL (0.6-1.0) Estimated GFR (Cockcroft-Gault) 42.5 BUN/Creatinine Ratio 18 (6-20) Glucose Level 161 mg/dL (70-99) Calcium Level 8.9 mg/dL (8.5-10.1) Total Bilirubin 0.5 mg/dL (0.2-1.0) Aspartate Amino Transf (AST/SGOT) 16 U/L (15-37) Alanine Aminotransferase (ALT/SGPT) 15 U/L (14-59) Alkaline Phosphatase 74 U/L (46-116) Total Protein 6.9 g/dL (6.4-8.2) Albumin 3.4 g/dL (3.4-5.0) Albumin/Globulin Ratio 1.0 (1.0-1.7) Coronavirus (COVID-19)(PCR) Negative (NEGATIVE) Notes She is awake and alert, sitting in bed. Speech is clear. Normal motor and sensation present in her left hand. Left upper extremity is in a splint. Assessment and Plan We discussed surgery again. I answered her questions. We will plan on surgery this afternoon. GERMANIA GOVEA II, MD Oct 02, 2019 09:12
[2019-10-02] MEDS ORDERED: LIDOCAINE 1% Multi-Dose 20 ML VIAL. ONE (12:04)
[2019-10-02] MEDS ORDERED: BUPIVACAINE MPF 0.5% 30 ML VIAL. ONE ×2 (12:04)
--- NOTE | 2019-10-02 12:37 | PDOC4 ---
Operative Note Operative Note Date of procedure: 10/02/2019 Surgeon: Michael Govea Rider Ticket Worker: Rafa Lizarraga, advanced practice registered nurse who is necessary to help manipulate the arm, assist with the retraction that occurred throughout the case and wound closure. Preoperative diagnosis: #1 close left elbow dislocation 2. Comminuted radial head fracture, left side, closed Postoperative diagnosis: Same Procedure performed: #1 radial head replacement 2. Lateral ligament complex repair of elbow Anesthesia: General Tourniquet time: 84 minutes Findings: cominuted radial head fracture, ruptured lateral ligaments Complications: none Components inserted: [employer] cobalt chrome radial head, outer diameter 20 mm on a cobalt chrome size +4, outer diameter 6.5 mm stem Reason for procedure: Patient is a very pleasant 88-year-old who continues to live alone and function independently and had a fall, landing onto her left upper extremity suffering the above injury. She was seen in the emergency department, had a reduced and was admitted for care. Her and I had a discussion of the risks, benefits, and alternatives to the above surgery and she elected to proceed. Description of procedure: Patient was greeted in the preoperative area by myself or the correct extremity was verified and marked. She was taken to the operative suite, antibiotics started as she was brought back. Once in the operating room, she was transferred on the spine to the operating room table and had successful induction of a general anesthetic. She is secured to the bed with all pressure points padded. The hand board attachment was secured to the operating room table. Her splint was taken off and her arm was pre-scrubbed with chlorhexidine. Nonsterile tourniquet was secured in place at her left upper arm. Left upper extremity was then prepped and draped in the usual st erile fashion and we conducted our standard preoperative timeout. I then palpated for her lateral epicondyle and made a slight curvilinear line with a marker over this. We then exsanguinated the extremity with an Esmarch and insufflated tourniquet to 250 mmHg. At this time, I incised skin with a scalpel and dissected subcutaneous tissue with a mosquito, using electrocautery for hemostasis as I proceeded. She had ruptured her muscle bellies in between her extensor wad and I use this exposure of opportunity, dissecting it apart with a hemostat and entering the elbow joint. I then irrigated out the elbow joint, and noted the 2 larger pieces and several smaller pieces of her radial head which were delivered from the elbow joint. I then inspected her lateral ligamentous complex which had essentially peeled off of the lateral epicondyle leaving a bare area of about a dime size. I then thoroughly irrigated out the elbow joint. Her annular ligament was largely intact, I transected this and placed 2 retractors around the radial neck, performing a freshening cut removing about 2 mm of bone. I next gained entry and then reamed up on hand to the above size which gave good initial contact. I then placed my stem and trialed different sizes of neck length, selecting the above size based on radiographic appearance. With radial head in place, her elbow was stable to valgus stress. After thoroughly irrigating out the canal and elbow joint again, I gently impacted the construct into position and reduced the elbow. After this, I used a free needle to pass a #2 Vicryl loop x2 through bone tunnels at her lateral epicondyle. I then clamped these to each other. I then directed my attention to placing a locked running #2 ultra braid through her lateral ligaments to give me 2 limbs over the lateral epicondyle. I then shuttled these through and tied them over the posterior distal humerus. After this, her elbow was stable to varus and valgus stress. I then repeat repaired a rent in the fascia and closed subcutaneous tissue with inverted interrupted #2 Vicryl. Prior to wound closure, all counts correct x2. Tourniquet had been let down and hemostasis ensured with electrocautery. Running 3-0 Monocryl in a subcuticular fashion was then used for skin. Local anesthetic was then injected in the miranda-incisional soft tissues. A sterile dressing was applied after Xeroform. After this, a posterior splint incorporating her hand was applied to her left upper extremity, well-padded. She was awakened from anesthesia and transferred on the spine to the recovery room cart and taken to PACU in stable and extubated condition. Postoperative plan is to readmit her to the floor under the care of the hospitalist, I will follow along. She will be nonweightbearing. She will receive antibiotic prophylaxis. MICHAEL GOVEA II, MD Oct 02, 2019 12:37
[2019-10-02] MEDS ORDERED: DEXAMETHASONE SOD PHOS 20 MG/5 ML VIAL. ONE (12:54)
[2019-10-02] MEDS ORDERED: SEVOFLURANE 61 TO 120 MINUTES. IH ONE (12:54)
--- NOTE | 2019-10-02 13:28 | PDOC ---
PROGRESS NOTES Chief Complaint Chief Complaint acute left arm pain, with acute radial head and her elbow dislocation, Mechanical fall unsteady gait obese, BMI 30 htn History of Present Illness History of Present Illness surg today weakness, debility PT and OT, herman needs skilled, to surg in tomorrow Vitals Vitals Vital Signs Date Time Temp Pulse Resp B/P (MAP) Pulse Ox O2 Delivery O2 Flow Rate FiO2 10/02/19 11:41 97.4 60 15 184/82 93 Room Air 97.4 10/02/19 03:00 2.0 Physical Exam General: Alert, Oriented X3 Heart: Regular rate Abdomen: Soft, No tenderness Extremities: No edema (With the exception of a mild amount of edema at her exposed digits on her left upper extremity), Normal pulses Assessment and Plan Assessmemt and Plan Problems Medical Problems: (1) Closed dislocation of left elbow Status: Acute (2) Fracture dislocation of left elbow joint Status: Acute Comment Review of Relevant I have reviewed the following items lisy (where applicable) has been applied. Labs Laboratory Tests Test 09/30/19 13:40 Coronavirus (COVID-19)(PCR) Negative (NEGATIVE) Medications Current Medications Fentanyl Citrate (Fentanyl 2ml Vial) 50 mcg 1X ONCE IVP Last administered on 09/30/19at 13:28; Start 09/30/19 at 13:15; Stop 09/30/19 at 13:16; Status DC Propofol (Diprivan) 200 mg 1X ONCE IV Last administered on 09/30/19at 13:45; Start 09/30/19 at 13:15; Stop 09/30/19 at 13:16; Status DC Sodium Chloride 500 ml @ 500 mls/hr 1X ONCE IV Last administered on 09/30/19at 13:28; Start 09/30/19 at 13:15; Stop 09/30/19 at 14:14; Status DC Ondansetron HCl (Zofran) 4 mg 1X ONCE IVP Last administered on 09/30/19 13:28; Start 09/30/19 at 13:15; Stop 09/30/19 at 13:16; Status DC Hydralazine HCl (Apresoline Inj) 10 mg 1X ONCE IVP Last administered on 09/30/19 15:00; Start 09/30/19 at 15:00; Stop 09/30/19 at 15:01; Status DC Calcium Polycarbophil (Fibercon) 625 mg DAILY PO ; Start 10/01/19 at 09:00; Stop 09/30/19 at 19:18; Status DC Atenolol (Tenormin) 50 mg DAILY PO Last administered on 10/02/19at 08:08; Start 10/01/19 at 09:00 Hydromorphone HCl (Dilaudid) 0.4 mg PRN Q4HRS PRN IVP MODERATE TO SEVERE PAIN; Start 09/30/19 at 16:00 Chlorthalidone (Thalitone) 25 mg DAILY PO Last administered on 10/02/19at 08:07; Start 10/01/19 at 09:00 Calcium Polycarbophil (Fibercon) 625 mg HS PO Last administered on 10/01/19at 20:49; Start 09/30/19 at 21:00 Ondansetron HCl (Zofran) 4 mg PRN Q6HRS PRN IV NAUSEA/VOMITING; Start 10/02/19 at 07:00; Stop 10/03/19 at 06:59 Fentanyl Citrate (Fentanyl 2ml Vial) 25 mcg PRN Q5MIN PRN IV MILD PAIN 1-3; Start 10/02/19 at 07:00; Stop 10/03/19 at 06:59 Fentanyl Citrate (Fentanyl 2ml Vial) 50 mcg PRN Q5MIN PRN IV MODERATE TO SEVERE PAIN; Start 10/02/19 at 07:00; Stop 10/03/19 at 06:59 Morphine Sulfate (Morphine Sulfate) 1 mg PRN Q10MIN PRN IV SEVERE PAIN 7-10; Start 10/02/19 at 07:00; Stop 10/03/19 at 06:59 Ringer's Solution 1,000 ml @ 30 mls/hr Q24H IV Last administered on 10/02/19at 11:43; Start 10/02/19 at 07:00; Stop 10/02/19 at 18:59 Lidocaine HCl (Xylocaine-Mpf 1% 2ml Vial) 2 ml PRN 1X PRN ID PRIOR TO IV START; Start 10/02/19 at 07:00; Stop 10/03/19 at 06:59 Hydromorphone HCl (Dilaudid) 0.5 mg PRN Q10MIN PRN IV SEV PAIN, Second choice; Start 10/02/19 at 07:00; Stop 10/03/19 at 06:59 Prochlorperazine Edisylate (Compazine) 5 mg PACU PRN PRN IV NAUSEA, MRX1; Start 10/02/19 at 07:00; Stop 10/03/19 at 06:59 Lidocaine HCl (Lidocaine Pf 2% Vial) 5 ml STK-MED ONCE .ROUTE ; Start 10/02/19 at 08:35; Stop 10/02/19 at 08:35; Status DC Propofol (Diprivan) 200 mg STK-MED ONCE IV ; Start 10/02/19 at 08:35; Stop 10/02/19 at 08:35; Status DC Fentanyl Citrate (Fentanyl 2ml Vial) 100 mcg STK-MED ONCE .ROUTE ; Start 10/02/19 at 08:35; Stop 10/02/19 at 08:35; Status DC Cefazolin Sodium/ Dextrose 50 ml @ 100 mls/hr 1X PREOP PRN IV PRIOR TO PROCEDURE; Start 10/03/19 at 06:00; Stop 10/03/19 at 18:00 Lidocaine HCl (Lidocaine 1% 20ml Vial) 20 ml STK-MED ONCE .ROUTE ; Start 10/02/19 at 12:04; Stop 10/02/19 at 12:04; Status DC Bupivacaine HCl (Sensorcaine Mpf 0.5%) 30 ml STK-MED ONCE .ROUTE ; Start 10/02/19 at 12:04; Stop 10/02/19 at 12:04; Status DC Bupivacaine HCl (Sensorcaine Mpf 0.5%) 30 ml STK-MED ONCE .ROUTE ; Start 10/02/19 at 12:04; Stop 10/02/19 at 12:04; Status DC Cefazolin Sodium/ Dextrose 50 ml @ 100 mls/hr Q8H IV ; Start 10/02/19 at 13:00; Stop 10/03/19 at 21:29 Dexamethasone Sodium Phosphate (Decadron) 20 mg STK-MED ONCE .ROUTE ; Start 10/02/19 at 12:54; Stop 10/02/19 at 12:54; Status DC Sevoflurane (Ultane) 60 ml STK-MED ONCE IH ; Start 10/02/19 at 12:54; Stop 10/02/19 at 12:54; Status DC Ephedrine Sulfate (Akovaz) 50 mg STK-MED ONCE .ROUTE ; Start 10/02/19 at 13:15; Stop 10/02/19 at 13:16; Status DC Active Scripts Active Reported Fibercon (Calcium Polycarbophil) 625 Mg Tablet 625 Mg PO DAILY Atenolol-Chlorthal 50-25 Tb (Atenolol/Chlorthalidone) 1 Each Tablet 1 Tab PO DAILY Vitals/I & O Vital Sign - Last 24 Hours 10/01/19 10/01/19 10/01/19 10/01/19 15:00 19:00 20:00 23:00 Temp 98.2 97.0 98.3 98.2 97.0 98.3 Pulse 72 69 82 Resp 18 18 18 B/P (MAP) 164/77 (106) 169/74 (105) 151/82 (105) Pulse Ox 97 91 90 O2 Delivery Room Air Room Air Room Air Nasal Cannula O2 Flow Rate 2.0 10/02/19 10/02/19 10/02/19 10/02/19 03:00 07:00 08:00 08:08 Temp 98.0 97.7 98.0 97.7 Pulse 66 71 71 Resp 18 18 B/P (MAP) 151/68 (95) 166/71 (102) 166/71 Pulse Ox 95 91 O2 Delivery Nasal Cannula Room Air Room Air O2 Flow Rate 2.0 10/02/19 10/02/19 11:00 11:41 Temp 97.9 97.4 97.9 97.4 Pulse 62 60 Resp 18 15 B/P (MAP) 156/68 (97) 184/82 Pulse Ox 100 93 O2 Delivery Room Air Room Air Intake and Output 10/01/19 10/01/19 10/02/19 15:00 23:00 07:00 Intake Total 260 ml 540 ml 100 ml Output Total 400 ml Balance 260 ml 540 ml -300 ml CATHI OZUNA MD Oct 02, 2019 13:28
[2019-10-02] MEDS: CALCIUM POLYCARBOPHIL 625 MG TABLET PO SCH (20:47)
[2019-10-03 03:00] VITALS: BP 144/64
[2019-10-03 07:00] VITALS: BP 149/60
[2019-10-03] MEDS: ATENOLOL 50 MG TABLET. PO SCH (08:07)
[2019-10-03] MEDS: CHLORTHALIDONE 25 MG TABLET. PO SCH (08:07)
[2019-10-03 11:00] VITALS: BP 142/60
--- NOTE | 2019-10-03 12:19 | PDOC ---
ORTHO PROGRESS NOTES Subjective She feels like the splint is heavy, but otherwise has no complaints or concerns. Vitals Vital Signs Date Time Temp Pulse Resp B/P (MAP) Pulse Ox O2 Delivery O2 Flow Rate FiO2 10/03/19 11:00 97.9 57 18 142/60 (87) 94 Room Air 97.9 10/03/19 03:00 2.0 Notes She is awake and alert and sitting at the edge of the bed. Splint is intact. Normal motor and sensation are present in her exposed fingers Assessment and Plan From my standpoint, she is doing well, I think she can be transferred when a bed is available. Nonweightbearing x6 weeks. Sling as needed. She should follow- up in 2 weeks. GERMANIA GOVEA II, MD Oct 03, 2019 12:19
--- NOTE | 2019-10-03 13:24 | PDOC ---
PROGRESS NOTES Chief Complaint Chief Complaint acute left arm pain, with acute radial head and her elbow dislocation, Mechanical fall unsteady gait obese, BMI 30 htn History of Present Illness History of Present Illness surg went well, she feels OK, no event her sister is here today weakness, debility PT and OT, herman needs skilled, Vitals Vitals Vital Signs Date Time Temp Pulse Resp B/P (MAP) Pulse Ox O2 Delivery O2 Flow Rate FiO2 10/03/19 11:00 97.9 57 18 142/60 (87) 94 Room Air 97.9 10/03/19 03:00 2.0 Physical Exam General: Alert, Oriented X3, No acute distress Heart: Regular rate Lungs: Clear Abdomen: Normal bowel sounds, Soft, No tenderness Extremities: No cyanosis, No edema (With the exception of a mild amount of ed pilar at her exposed digits on her left upper extremity), Normal pulses Skin: No rashes, No breakdown Assessment and Plan Assessmemt and Plan Problems Medical Problems: (1) Closed dislocation of left elbow Status: Acute (2) Fracture dislocation of left elbow joint Status: Acute Comment Review of Relevant I have reviewed the following items lisy (where applicable) has been applied. Medications Current Medications Fentanyl Citrate (Fentanyl 2ml Vial) 50 mcg 1X ONCE IVP Last administered on 09/30/19 13:28; Start 09/30/19 at 13:15; Stop 09/30/19 at 13:16; Status DC Propofol (Diprivan) 200 mg 1X ONCE IV Last administered on 09/30/19at 13:45; Start 09/30/19 at 13:15; Stop 09/30/19 at 13:16; Status DC Sodium Chloride 500 ml @ 500 mls/hr 1X ONCE IV Last administered on 09/30/19 13:28; Start 09/30/19 at 13:15; Stop 09/30/19 at 14:14; Status DC Ondansetron HCl (Zofran) 4 mg 1X ONCE IVP Last administered on 09/30/19 13:28; Start 09/30/19 at 13:15; Stop 09/30/19 at 13:16; Status DC Hydralazine HCl (Apresoline Inj) 10 mg 1X ONCE IVP Last administered on 09/30/19 15:00; Start 09/30/19 at 15:00; Stop 09/30/19 at 15:01; Status DC Calcium Polycarbophil (Fibercon) 625 mg DAILY PO ; Start 10/01/19 at 09:00; Stop 09/30/19 at 19:18; Status DC Atenolol (Tenormin) 50 mg DAILY PO Last administered on 10/03/19at 08:07; Start 10/01/19 at 09:00 Hydromorphone HCl (Dilaudid) 0.4 mg PRN Q4HRS PRN IVP MODERATE TO SEVERE PAIN; Start 09/30/19 at 16:00 Chlorthalidone (Thalitone) 25 mg DAILY PO Last administered on 10/03/19at 08:07; Start 10/01/19 at 09:00 Calcium Polycarbophil (Fibercon) 625 mg HS PO Last administered on 10/02/19at 20:47; Start 09/30/19 at 21:00 Ondansetron HCl (Zofran) 4 mg PRN Q6HRS PRN IV NAUSEA/VOMITING; Start 10/02/19 at 07:00; Stop 10/03/19 at 06:59; Status DC Fentanyl Citrate (Fentanyl 2ml Vial) 25 mcg PRN Q5MIN PRN IV MILD PAIN 1-3; Start 10/02/19 at 07:00; Stop 10/03/19 at 06:59; Status DC Fentanyl Citrate (Fentanyl 2ml Vial) 50 mcg PRN Q5MIN PRN IV MODERATE TO SEVERE PAIN; Start 10/02/19 at 07:00; Stop 10/03/19 at 06:59; Status DC Morphine Sulfate (Morphine Sulfate) 1 mg PRN Q10MIN PRN IV SEVERE PAIN 7-10; Start 10/02/19 at 07:00; Stop 10/03/19 at 06:59; Status DC Ringer's Solution 1,000 ml @ 30 mls/hr Q24H IV Last administered on 10/02/19at 11:43; Start 10/02/19 at 07:00; Stop 10/02/19 at 18:59; Status DC Lidocaine HCl (Xylocaine-Mpf 1% 2ml Vial) 2 ml PRN 1X PRN ID PRIOR TO IV START; Start 10/02/19 at 07:00; Stop 10/03/19 at 06:59; Status DC Hydromorphone HCl (Dilaudid) 0.5 mg PRN Q10MIN PRN IV SEV PAIN, Second choice; Start 10/02/19 at 07:00; Stop 10/03/19 at 06:59; Status DC Prochlorperazine Edisylate (Compazine) 5 mg PACU PRN PRN IV NAUSEA, MRX1; Sta rt 10/02/19 at 07:00; Stop 10/03/19 at 06:59; Status DC Lidocaine HCl (Lidocaine Pf 2% Vial) 5 ml STK-MED ONCE .ROUTE ; Start 10/02/19 at 08:35; Stop 10/02/19 at 08:35; Status DC Propofol (Diprivan) 200 mg STK-MED ONCE IV ; Start 10/02/19 at 08:35; Stop at 08:35; Status DC Fentanyl Citrate (Fentanyl 2ml Vial) 100 mcg STK-MED ONCE .ROUTE ; Start 10/02/19 at 08:35; Stop 10/02/19 at 08:35; Status DC Cefazolin Sodium/ Dextrose 50 ml @ 100 mls/hr 1X PREOP PRN IV PRIOR TO PROCEDURE Last administered on 10/02/19at 12:36; Start 10/03/19 at 06:00; Stop 10/03/19 at 18:00 Lidocaine HCl (Lidocaine 1% 20ml Vial) 20 ml STK-MED ONCE .ROUTE Last administered on 10/02/19at 13:19; Start 10/02/19 at 12:04; Stop 10/02/19 at 12:04; Status DC Bupivacaine HCl (Sensorcaine Mpf 0.5%) 30 ml STK-MED ONCE .ROUTE Last administered on 10/02/19at 13:19; Start 10/02/19 at 12:04; Stop 10/02/19 at 12:04; Status DC Bupivacaine HCl (Sensorcaine Mpf 0.5%) 30 ml STK-MED ONCE .ROUTE ; Start 10/02/19 at 12:04; Stop 10/02/19 at 12:04; Status DC Cefazolin Sodium/ Dextrose 50 ml @ 100 mls/hr Q8H IV Last administered on 10/03/19at 12:42; Start 10/02/19 at 13:00; Stop 10/03/19 at 21:29 Dexamethasone Sodium Phosphate (Decadron) 20 mg STK-MED ONCE .ROUTE ; Start 10/02/19 at 12:54; Stop 10/02/19 at 12:54; Status DC Sevoflurane (Ultane) 60 ml STK-MED ONCE IH ; Start 10/02/19 at 12:54; Stop 10/02/19 at 12:54; Status DC Ephedrine Sulfate (Akovaz) 50 mg STK-MED ONCE .ROUTE ; Start 10/02/19 at 13:15; Stop 10/02/19 at 13:16; Status DC Active Scripts Active Reported Fibercon (Calcium Polycarbophil) 625 Mg Tablet 625 Mg PO DAILY Atenolol-Chlorthal 50-25 Tb (Atenolol/Chlorthalidone) 1 Each Tablet 1 Tab PO DAILY Vitals/I & O Vital Sign - Last 24 Hours 10/02/19 10/02/19 10/02/19 10/02/19 14:45 14:45 15:00 15:15 Temp 97.2 97.2 97.2 97.2 Pulse 60 61 61 Resp 16 16 16 B/P (MAP) 154/70 157/67 16/70 Pulse Ox 99 99 93 O2 Delivery Mask Simple Mask Simple Mask Nasal Cannula O2 Flow Rate 4 4 4 2 10/02/19 10/02/19 10/02/19 10/02/19 15:20 15:30 15:45 16:00 Temp 97.2 97.7 97.2 97.7 Pulse 61 57 62 Resp 16 18 18 B/P (MAP) 154/64 152/74 (100) 153/72 (99) Pulse Ox 93 94 94 O2 Delivery Nasal Cannula Nasal Cannula Room Air Room Air O2 Flow Rate 2 2 10/02/19 10/02/19 10/02/19 10/02/19 16:15 16:30 17:00 17:30 Pulse 59 66 60 59 Resp 18 18 B/P (MAP) 150/74 (99) 140/68 (92) 144/73 (96) 155/75 (101) Pulse Ox 95 95 94 96 O2 Delivery Room Air Nasal Cannula Room Air Room Air O2 Flow Rate 2.0 10/02/19 10/02/19 10/02/19 10/03/19 19:00 20:00 23:00 03:00 Temp 97.4 97.8 97.9 97.4 97.8 97.9 Pulse 69 65 67 Resp 18 18 18 B/P (MAP) 129/57 (81) 130/55 (80) 144/64 (90) Pulse Ox 96 93 93 O2 Delivery Nasal Cannula Room Air Nasal Cannula Nasal Cannula O2 Flow Rate 2.0 2.0 2.0 10/03/19 10/03/19 10/03/19 10/03/19 07:00 08:00 08:07 11:00 Temp 97.7 97.9 97.7 97.9 Pulse 61 61 57 Resp 18 18 B/P (MAP) 149/60 (89) 149/60 142/60 (87) Pulse Ox 93 94 O2 Delivery Room Air Room Air Room Air Intake and Output 10/02/19 10/02/19 10/03/19 15:00 23:00 07:00 Intake Total 650 ml 760 ml 350 ml Output Total 25 ml 200 ml Balance 625 ml 760 ml 150 ml CATHI OZUNA MD Oct 03, 2019 13:24
[2019-10-03] MEDS ORDERED: DOCU-109 PO (14:15)
[2019-10-03] MEDS ORDERED: IBUP-1027 PO (14:15)
[2019-10-03] MEDS ORDERED: ACET325T9 PO (14:15)
--- NOTE | 2019-10-03 14:16 | SNU/HH DC ---
DISCHARGE ORDERS DISCHARGE INFORMATION: DISCHARGE DATE: Oct 03, 2019 FINAL DIAGNOSIS htn elbow fracture and dislocation Problems Medical Problems: (1) Closed dislocation of left elbow Status: Acute (2) Fracture dislocation of left elbow joint Status: Acute CONDITION ON DISCHARGE: Stable CODE STATUS: Code Status: Full HALF-WAY: SNF STAY <30 DAYS: Yes POST DISCHARGE ORDERS: ACTIVITY ORDERS: No restrictions WEIGHT BEARING STATUS: No restrictions DIET AFTER DISCHARGE: Regular FOLLOW-UP: PHYSICIAN FOLLOW-UP: Dr. Mehta TREATMENT/EQUIPMENT ORDERS: ADAPTIVE EQUIPMENT NEEDED: Front wheeled walker Physical Therapy For: Evalulation/Treatment Occupational Therapy For: Evaluation/Treatment DISCHARGE MEDICATIONS: Home Meds Active Scripts Docusate Sodium (COLACE) 100 Mg Capsule, 100 MG PO BID PRN for CONSTIPATION, #60 EACH Prov:CATHI OZUNA MD 10/03/19 Ibuprofen (IBUPROFEN) 400 Mg Tablet, 400 MG PO PRN Q6HRS PRN for INFLAMMATION, #30 TAB Prov:CATHI OZUNA MD 10/03/19 Acetaminophen (TYLENOL) 325 Mg Tablet, 1-2 TAB PO QID PRN for PAIN, #60 TAB 2 Refills Prov:CATHI OZUNA MD 10/03/19 Reported Medications Calcium Polycarbophil (FIBERCON) 625 Mg Tablet, 625 MG PO DAILY for daily, TAB 09/30/19 Atenolol/Chlorthalidone (ATENOLOL-CHLORTHAL 50-25 TB) 1 Each Tablet, 1 TAB PO DAILY for ANTIHYPERTENSIVE, TAB 09/30/19 CATHI OZUNA MD Oct 03, 2019 14:16
[2019-10-03 15:00] VITALS: BP 145/62
[2019-10-03 19:00] VITALS: BP 156/59
[2019-10-03] MEDS: CALCIUM POLYCARBOPHIL 625 MG TABLET PO SCH (20:34)
[2019-10-03 23:00] VITALS: BP 154/63
[2019-10-04 03:00] VITALS: BP 157/68
[2019-10-04 07:00] VITALS: BP 166/61
[2019-10-04] MEDS: ATENOLOL 50 MG TABLET. PO SCH (07:57)
[2019-10-04] MEDS: CHLORTHALIDONE 25 MG TABLET. PO SCH (07:57)
--- NOTE | 2019-10-04 08:45 | PDOC3 ---
Discharge Summary Visit Information Date of Admission: Sep 30, 2019 Date of Discharge: Oct 04, 2019 Final Diagnosis acute left arm pain, with acute radial head and her elbow dislocation, Mechanical fall unsteady gait obese, BMI 30 htn chronic diastolic CHF, stable Problems Medical Problems: (1) Closed dislocation of left elbow Status: Acute (2) Fracture dislocation of left elbow joint Status: Acute Brief Hospital Course Allergies Allergies Coded Allergies Type Severity Reaction Last Updated Verified Iodinated Contrast Media Allergy Intermediate Hives 12/22/14 No Vital Signs Vital Signs Date Time Temp Pulse Resp B/P (MAP) Pulse Ox O2 Delivery O2 Flow Rate FiO2 10/04/19 07:57 56 166/61 10/04/19 07:22 Room Air 10/04/19 07:00 98.4 16 98 2.0 98.4 Brief Hospital Course Ms. Soto is a 88 old female, admit with left arm pain, radius fracture and dislocation, surg with Dr. Carter, went well weakness, poor ability to care for herself, needs SNU, rehab closed left elbow dislocation and Comminuted radial head fracture, left side, closed 10/01, surg done was radial head replacement and Lateral ligament complex repair of elbow Discharge Information Condition at Discharge: Improved Follow Up: Weeks Disposition/Orders: D/C to Another Facility (skilled) Scheduled Atenolol/Chlorthalidone (Atenolol-Chlorthal 50-25 Tb) 1 Each Tablet, 1 TAB PO DAILY for ANTIHYPERTENSIVE, (Reported) Entered as Reported by: RAFFY HERNANDEZ on 09/30/191521 Last Action: Converted on 09/30/191553 by BART DOMINIQUE MD Calcium Polycarbophil (Fibercon) 625 Mg Tablet, 625 MG PO DAILY for daily, (Reported) Entered as Reported by: RAFFY HERNANDEZ on 09/30/191521 Last Action: Continued on 09/30/191553 by BART DOMINIQUE MD Scheduled PRN Acetaminophen (Tylenol) 325 Mg Tablet, 1-2 TAB PO QID PRN for PAIN, #60 Ref 2 Prescribed by: CATHI OZUNA on 10/03/19 1415 Docusate Sodium (Colace) 100 Mg Capsule, 100 MG PO BID PRN for CONSTIPATION, #60 Prescribed by: CATHI OZUNA on 10/03/19 1415 Ibuprofen (Ibuprofen) 400 Mg Tablet, 400 MG PO PRN Q6HRS PRN for INFLAMMATION, #30 Prescribed by: CATHI OZUNA on 10/03/19 1415 Patient Instructions Patient Instructions face to face Justicifation of Admission Dx: Justifications for Admission: Justification of Admission Dx: Yes Fracture: Fracture CATHI OZUNA MD Oct 04, 2019 08:45
[2019-10-04 11:30] VITALS: BP 173/79
== END 2019-10-04 13:00 | DRG 511 ==
LOC: ER 11:13 → 4 NORTH 14:47
PROVIDERS: ADMIT Family Medicine; ATTEND Family Medicine
PROC: 0RSMXZZ Reposition Left Elbow Joint, External Approach (ICD-10-PCS; 2019-09-30)
PROC: 0PRJ0JZ Replacement of Left Radius with Synthetic Substitute, Open Approach (ICD-10-PCS; principal; 2019-10-02 12:30)
DX: S52.122A Displaced fracture of head of left radius, initial encounter for closed fracture (principal); I50.32 Chronic diastolic (congestive) heart failure; E66.9 Obesity, unspecified; I89.0 Lymphedema, not elsewhere classified; M19.90 Unspecified osteoarthritis, unspecified site; R26.81 Unsteadiness on feet; S53.492A Other sprain of left elbow, initial encounter; S53.105A Unspecified dislocation of left ulnohumeral joint, initial encounter; I11.0 Hypertensive heart disease with heart failure; Z20.828 Contact with and (suspected) exposure to other viral communicable diseases; M25.422 Effusion, left elbow; W01.0XXA Fall on same level from slipping, tripping and stumbling without subsequent striking against object, initial encounter; Z68.30 Body mass index [BMI] 30.0-30.9, adult; Y92.22 Religious institution as the place of occurrence of the external cause; Y93.89 Activity, other specified; Y99.8 Other external cause status; Z91.041 Radiographic dye allergy status
CPT/HCPCS: 24600; 36415; 73070; 73080; 76000; 80053; 85025; 85610; 85730; 96361; 96374; 96375; 99285; A7015; J0360; J0696; J1100; J2405; J2704; J3010; J3490; J7040; J7120; U0003; 97110-GP; 97116-GP; 97530-GO; 97530-GP; 97535-GO; G0378

== ENCOUNTER → 2020-12-15 | Outpatient (CLI) | payer MEDICARE, OTHER ==
[~2020-12-15] MED LIST: ACET325T9 PO; ATEN1TAB3 PO; CALC625T PO; DOCU-109 PO; IBUP-1027 PO
--- NOTE | 2020-12-15 16:03 | RAD ---
EXAM: Bilateral digital screening mammogram with tomosynthesis. HISTORY: 89-year-old female presents for screening mammography. TECHNIQUE: Full-field digital craniocaudal and mediolateral oblique 2D and 3D tomosynthesis images of both breasts are obtained for evaluation. Computer aided detection was applied. COMPARISON: 05/31/2016 BREAST PARENCHYMAL DENSITY: Level C - Heterogeneously dense. FINDINGS: There is no new suspicious mass, microcalcification or region of architectural distortion. There are extensive scattered areas of nodularity and asymmetry within both breasts which are stable when allowing for differences in imaging technique. The greater than 4 year course of stability favor s benignity. There are multiple benign calcifications. There is a biopsy clip within the left breast. IMPRESSION: BI-RADS Category 2: Benign finding(s). RECOMMENDATION: Continued annual mammography can be performed if deemed clinically indicated in this 89-year-old patient. If your mammogram demonstrates that you have dense breast tissue, which could hide abnormalities, and if you have other risk factors for breast cancer that have been identified, you might benefit from s upplemental screening tests that may be suggested by your ordering physician. Dense breast tissue, i n and of itself, is a relatively common condition. This information is not provided to cause undue c oncern, but rather to raise your awareness and to promote discussion with your physician regarding th e presence of other risk factors, in addition to dense breast tissue. A report of your mammography re sults will be sent to you and your physician. You should contact your physician if you have any ques tions or concerns regarding this report. Mammography is a sensitive method for finding small breast cancers, but it does not detect them all a nd is not a substitute for careful clinical examination. A negative mammogram does not negate a clin ically suspicious finding and should not result in delay in biopsying a clinically suspicious abnorma lity. PQRS compliance statement - Patient information was entered into a reminder system with a target due date for the next mammogram. "Our facility is accredited by the [employer] Mammography Program." Electronically signed by: Gale Kendrick MD (12/15/2020 4:01 PM) [id number]
== END ==
LOC: MAMMO 13:09
PROVIDERS: ATTEND Family Medicine
DX: Z12.31 Encounter for screening mammogram for malignant neoplasm of breast (principal); R92.1 Mammographic calcification found on diagnostic imaging of breast
CPT/HCPCS: 77063; 77067